=== PATIENT | male | born 1960 | race African-American/Black ===

== ENCOUNTER 2018-07-20 05:28 | Day surgery (SDC) | payer BC ==
[~2018-07-20] VITALS: Ht 188 cm; Wt 99.8 kg
[~2018-07-20 05:28] MED LIST: AMLO5TAB4 PO
[2018-07-20] MEDS ORDERED: LACTATED RINGERS 1,000 ML IV SCH (06:00)
[2018-07-20] MEDS ORDERED: SKIN ADHESIVE 0.7 GM EA TOP ONE (06:07)
[2018-07-20] MEDS ORDERED: BUPIVACAINE HCL 0.5% (5MG/ML) 50ML ONE ×2 (06:08→06:57)
[2018-07-20] MEDS ORDERED: GLYCOPYRROLATE 0.2 MG/ML 2ML VIAL ONE ×2 (07:56→10:02)
[2018-07-20] MEDS ORDERED: EPHEDRINE SULFATE 50MG/ML VIAL ONE (08:03)
[2018-07-20] MEDS ORDERED: HYDROMORPHONE HCL/PF 2MG/ML CPJ IV PRN (08:15)
[2018-07-20] MEDS ORDERED: LABETALOL 5MG/ML SYR 20 MG/4 ML SYRINGE IV PRN (08:15)
[2018-07-20] MEDS ORDERED: ONDANSETRON HCL 4MG/2ML INJ IV PRN (08:15)
[2018-07-20] MEDS ORDERED: MEPERIDINE HCL/PF 25MG/ML CPJ IV PRN (08:15)
[2018-07-20] MEDS ORDERED: ROCURONIUM BROMIDE 10MG/ML VIAL 5ML IV ONE ×2 (08:19→09:44)
[2018-07-20] MEDS ORDERED: BUPIVACAINE HCL/PF 0.25% (2.5MG/ML) 10ML ONE (09:44)
[2018-07-20] MEDS ORDERED: NEOSTIGMINE METHYLSULFATE 1MG/ML 10 ML VIAL ONE (10:02)
[2018-07-20] MEDS ORDERED: ONDANSETRON HCL 4MG/2ML INJ ONE (10:13)
== END 2018-07-20 12:15 | disposition home or self-care (01) ==
LOC: OR 05:28
PROVIDERS: ATTEND Surgery
DX: K40.20 Bilateral inguinal hernia, without obstruction or gangrene, not specified as recurrent (principal); I10 Essential (primary) hypertension; Z79.899 Other long term (current) drug therapy
CPT/HCPCS: 49650; 93005; C1781; G0168; J2405; J2710; J3490; J7120; S2900